=== PATIENT | male | born 1970 | race Caucasian/White ===

== ENCOUNTER → 2018-06-13 | Outpatient (CLI) | payer OTHER | LOC: EDBD → FIMAGING 07:44 | DX: M94.8X8 Other specified disorders of cartilage, other site (principal); M25.462 Effusion, left knee; M23.42 Loose body in knee, left knee ==

== ENCOUNTER 2018-06-16 20:20 | Emergency (ER) | payer OTHER ==
[2018-06-16] MEDS ORDERED: SKIN ADHESIVE (DERMABOND) 1 EACH TP ONE (20:30)
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
[2018-06-16] MEDS ORDERED: IBUPROFEN 800 MG TAB PO ONE (21:25)
[2018-06-17 04:32] VITALS: BP 132/70
== END 2018-06-16 21:44 | disposition home or self-care (01) ==
LOC: EDBD 20:20
DX: S01.511A Laceration without foreign body of lip, initial encounter (principal); S01.312A Laceration without foreign body of left ear, initial encounter; S49.92XA Unspecified injury of left shoulder and upper arm, initial encounter; Y04.2XXA Assault by strike against or bumped into by another person, initial encounter; Y92.149 Unspecified place in prison as the place of occurrence of the external cause; Y93.9 Activity, unspecified; Y99.9 Unspecified external cause status